=== PATIENT | female | born 1980 | race African-American/Black ===

== ENCOUNTER 2019-07-27 07:53 | Emergency (ER) | payer MEDICAID, MEDICARE, OTHER ==
[~2019-07-27] VITALS: Ht 162.6 cm; Wt 68.0 kg
[2019-07-27 08:39] LABS: BASOPHILS % 0.8 % (0.0-2.0); EOSINOPHILS % 0.7 % (0.0-5.0); HEMATOCRIT. 31.3 % (36.0-48.0); HEMOGLOBIN. 10.2 g/dL (12.0-16.0); LYMPHOCYTES % 20.5 % (20.0-50.0); MONOCYTES % 9.4 % (2.0-8.0); NEUTROPHILS % 68.6 % (40.0-76.0); PLATELET 196 x1000/uL (130-400); RED CELL DISTRIBUTION WIDTH 19.2 % (11.6-14.6)
[2019-07-27 08:54] LABS: CHLORIDE 106 mEq/L (98-107)
[2019-07-27 09:05] LABS: HCG SCREEN NEGATIVE
[2019-07-27 11:13] VITALS: BP 141/85
== END 2019-07-27 11:14 | disposition home or self-care (01) ==
LOC: ER 08:09
DX: R10.12 Left upper quadrant pain (principal); N20.0 Calculus of kidney; I10 Essential (primary) hypertension; Z98.890 Other specified postprocedural states
CPT/HCPCS: 36415; 71045; 74176; 80053; 83880; 84484; 84703; 85025; 93005; 99285